=== PATIENT | female | born 1995 | race African-American/Black ===

== ENCOUNTER 2017-01-03 15:48 | Emergency (ER) | payer SELFPAY ==
--- NOTE | 2017-01-03 16:10 | PD ---
HPI Chief Complaint: Psychiatric Symptoms Time Seen by Provider: 16:07 Travel History International Travel<30 days: No Contact w/Intl Traveler<30days: No Traveled to known affect area: No History of Present Illness HPI 21-year-old Afro-[place] female brought in by local police with thoughts of suicidal ideation. Patient is a Albert act. Patient denies any medical issues currently. Patient does not have a specific plan. Patient states a history of asthma but no acute medical issues. She has no known drug allergies. PFSH Past Medical History ?: Not Social History Alcohol Use: No Tobacco Use: No Substance Use: No Allergies-Medications (Allergen,Severity, Reaction): Coded Allergies: No Known Allergies (Unverified , 01/03/17) Review of Systems Except as stated in HPI: all other systems reviewed are Neg General / Constitutional: No: Fever Eyes: No: Visual changes HENT: No: Headaches Cardiovascular: No: Chest Pain or Discomfort Respiratory: No: Shortness of Breath Gastrointestinal: No: Abdominal Pain Genitourinary: No: Dysuria Musculoskeletal: No: Pain Skin: No Rash Neurologic: No: Weakness Psychiatric: Positive: Depression, Suicidal Ideations, No: Anxiety, Disorder of Thought, Mood Disorder, Substance Abuse, Homicidal Ideation Endocrine: No: Polydipsia Hematologic/Lymphatic: No: Easy Bruising Physical Exam Narrative GENERAL: Patient appears in good spirits with good eye contact. SKIN: Warm and dry. Normal color. Normal turgor. HEAD: Atraumatic. Normocephalic. EYES: Pupils equal and round. No scleral icterus. No injection or drainage. ENT: No nasal bleeding or discharge. Mucous membranes pink and moist. Pharynx is normal. NECK: Trachea midline. Neck is supple. CARDIOVASCULAR: Regular rate and rhythm. RESPIRATORY: No accessory muscle use. Clear to auscultation. Breath sounds equal bilaterally. MUSCULOSKELETAL: Extremities without clubbing, cyanosis, or edema. No obvious deformities. NEUROLOGICAL: Awake and alert. No obvious cranial nerve deficits. Motor grossly within normal limits. Five out of 5 muscle strength in the arms and legs. Normal speech. PSYCHIATRIC: Appropriate mood and affect; insight and judgment normal. Data Data Orders Complete Blood Count With Diff (01/03/17 16:02) Comprehensive Metabolic Panel (01/03/17 16:02) Ed Urine Pregnancytest Poc (01/03/17 16:02) Psych Screen (01/03/17 16:02) Drug Screen, Random Urine (01/03/17 16:02) Alcohol (Ethanol) (01/03/17 16:02) MDM Medical Decision Making Medical Screen Exam Complete: Yes Emergency Medical Condition: Yes Differential Diagnosis Albert act. Suicidal ideation. Situational stressors. Narrative Course Patient is medically stable at time of exam. Psychiatric labs ordered per protocol. Patient is medically cleared for psychiatric evaluation. Diagnosis Primary Impression: Medical clearance for psychiatric admission Additional Impression: Suicidal ideation Condition: Stable Andry Edwards Jan 03, 2017 16:10
[2017-01-03 16:55] VITALS: BP 131/84; PULSE 71; RESP 15; TEMP 98.2; O2SAT 100
[2017-01-03 17:02] LABS: AUTOMATED NEUTROPHIL # 4.7 TH/MM3 (1.8-7.7); BASOPHIL # 0.1 TH/MM3 (0-0.2); BASOPHIL % 0.7 % (0.0-2.0); EOSINOPHIL # 0.4 TH/MM3 (0-0.4); EOSINOPHIL % 4.6 % (0.0-4.0); HEMATOCRIT 39.4 % (35.0-46.0); HEMO FLAGS DIFF FINAL; LYMPH % 29.2 % (9.0-44.0); LYMPHOCYTE # 2.3 TH/MM3 (1.0-4.8); MEAN CELL VOLUME 84.9 FL (80.0-100.0); MEAN CORPUSCULAR HEMOGLOBIN 29.2 PG (27.0-34.0); MEAN CORPUSCULAR HGB CONC 34.3 % (32.0-36.0); MONO % 6.2 % (0.0-8.0); NEUT % 59.3 % (16.0-70.0); PLATELET COUNT 204 TH/MM3 (150-450); RED BLOOD COUNT 4.64 MIL/MM3 (4.00-5.30); RED CELL DISTRIBUTION WIDTH 13.8 % (11.6-17.2)
[2017-01-03 17:22] LABS: ANION GAP 7 MEQ/L (5-15)
[2017-01-03 17:26] LABS: ALKALINE PHOSPHATASE 62 U/L (45-117); ALT (GPT) 15 U/L (9-42); AST (GOT) 12 U/L (16-38); BICARBONATE 25.7 MEQ/L (21.0-32.0); BLOOD UREA NITROGEN 9 MG/DL (7-18); CHLORIDE 107 MEQ/L (98-107); GLOMERULAR FILTRATION RATE 83 ML/MIN (>89); POTASSIUM 3.9 MEQ/L (3.5-5.1); SODIUM (NA) 140 MEQ/L (136-145); TOTAL BILIRUBIN ADULT 0.2 MG/DL (0.2-1.0)
[2017-01-03] MEDS ORDERED: ZOLO50TA PO (19:17)
[2017-01-03 21:06] LABS: AMPHETAMINE, URINE NEG (NEG); BARBITURATES, URINE NEG (NEG); COCAINE, URINE NEG (NEG)
[2017-01-03 22:25] VITALS: BP 139/86; PULSE 61; RESP 18
[2017-01-04 02:21] VITALS: BP 156/79; PULSE 63; RESP 18; O2SAT 100
== END 2017-01-04 03:53 ==
LOC: NEPJ 15:48
DX: Z02.89 Encounter for other administrative examinations (principal); R45.851 Suicidal ideations; Z87.09 Personal history of other diseases of the respiratory system
CPT/HCPCS: 80053; 80307; 84703; 85025; 99284

== ENCOUNTER 2017-01-30 14:28 | Emergency (ER) | payer SELFPAY ==
[~2017-01-30] VITALS: Ht 160 cm; Wt 104.5 kg
[~2017-01-30 14:28] MED LIST: ZOLO50TA PO
[2017-01-30 14:29] VITALS: BP 145/77; PULSE 80; RESP 17; TEMP 98.2; O2SAT 98
== END 2017-01-30 14:55 | disposition left against medical advice (07) ==
LOC: NED 14:28
DX: H57.8 Other specified disorders of eye and adnexa (principal)
CPT/HCPCS: 99281

== ENCOUNTER 2017-11-03 16:43 | Emergency (ER) | payer MEDICAID ==
[2017-11-03 16:47] VITALS: BP 144/67; PULSE 77; RESP 14; TEMP 99; O2SAT 95
--- NOTE | 2017-11-03 20:32 | PD ---
HPI Chief Complaint: Skin Problem Time Seen by Provider: 20:08 Travel History International Travel<30 days: No Contact w/Intl Traveler<30days: No Traveled to known affect area: No History of Present Illness HPI 22-year-old female presents to the emergency room with 2 complaints. Her first complaint is right ear lobe pain and swelling 2 weeks. She said she noticed a cut on her right earlobe about 2 weeks ago and since then it has slowly swollen. She says the ear lobe is itchy also. She denies fever, vomiting. Has not taken any medications or tried any treatments to alleviate her symptoms. Rates pain 03/05. Describes it as a throbbing sensation. No known aggravating or relieving factors. Her second complaint is a sore throat 2 days. Burning in sensation. 05/05. Denies lump in throat, difficulty swallowing, unusual drooling. No others with similar symptoms. Denies nasal congestion, cough, ear pain. Has been taking DayQuil/NyQuil for symptomatic management. Denies fever, vomiting. Denies abdominal pain. Worse with swallowing. No known allergies. Has no other medical complaints. No other modifying factors or associated signs and symptoms. PFSH Past Medical History Depression: Yes Diabetes: No Respiratory: Yes (asthma) ?: Not LMP: 2 weeks aso Social History Alcohol Use: No Tobacco Use: No Substance Use: No (PT DENIES) Allergies-Medications (Allergen,Severity, Reaction): Coded Allergies: No Known Allergies (Unverified Adverse Reaction, Unknown, 11/03/17) Reported Meds & Prescriptions Reported Meds & Active Scripts Active Magic Mouthwash Pediatric/Adult Liq (Lidocaine/Diphenhydr/Alum/Mg/Simeth) 60 Ml Susp 5 Ml SWISH-SWAL ACHS PRN Each 5mL contains: Diphenydramine 4.5mg, Viscous Lidocaine 2% 10mg, Maalox Advanced Regular Strength 2.7ml Ibuprofen 800 Mg Tab 800 Mg PO Q6HR PRN Clindamycin (Clindamycin HCl) 150 Mg Cap 450 Mg PO Q6H 10 Days Reported Zoloft (Sertraline HCl) 50 Mg Tab 50 Mg PO DAILY Review of Systems Except as stated in HPI: all other systems reviewed are Neg Physical Exam Narrative GENERAL: Well-nourished, well-developed black female patient, in no acute distress SKIN: Warm and dry. No rash. HEAD: Atraumatic. Normocephalic. EYES: Pupils equal and round at 3 mm with brisk reaction. No scleral icterus. No injection or drainage. PERRLA. ENT: Mucosa pink and dry. Pharynx with 1+ tonsils; with erythema; without exudate, and edema. No Uvular edema. No uvular, palatal, or tonsillar deviation. Airway patent. Voice is hoarse. EARS: Right ear lobe is edematous and erythematous and with warmth to touch; skin is dry and some cracking is noted; dry crusted drainage noted. Bilateral pinnae and external canals appear within normal limits. Bilateral tympanic membranes without erythema, dullness or perforation. No auricular lymphadenopathy. No tenderness on palpation behind the ear and there is no erythema or edema behind the ear. NECK: Trachea midline. Anterior cervical lymphadenopathy and tenderness. CARDIOVASCULAR: Regular rate and rhythm. No murmur appreciated. 3+ radial pulses. RESPIRATORY: No accessory muscle use. Clear to auscultation. Breath sounds equal bilaterally. GASTROINTESTINAL: Abdomen soft, non-tender, nondistended. Hepatic and splenic margins not palpable. Bowel sounds are active 4 quadrants. MUSCULOSKELETAL: No obvious deformities. No clubbing. No cyanosis. No edema. BACK: No CVA tenderness. NEUROLOGICAL: Awake and alert. Oriented 3. No obvious cranial nerve deficits. Motor grossly within normal limits. Normal speech. Moves all extremities. PSYCHIATRIC: Appropriate mood and affect; insight and judgment normal. Data Data Last Documented VS Vital Signs Date Time Temp Pulse Resp B/P (MAP) Pulse Ox O2 Delivery O2 Flow Rate FiO2 11/03/17 16:47 99.0 77 14 144/67 (92) 95 Orders Orders Group A Rapid Strep Screen (11/03/17 20:32) Clindamycin (Cleocin) (11/03/17 20:45) Ibuprofen (Motrin) (11/03/17 20:45) Ed Discharge Order (11/03/17 20:35) MDM Medical Decision Making Medical Screen Exam Complete: Yes Emergency Medical Condition: Yes Medical Record Reviewed: Yes Differential Diagnosis Earlobe cellulitis, sore throat, strep throat, pharyngitis, viral pharyngitis Narrative Course 22-year-old female with cellulitis of the right ear lobe and a sore throat. I will treat the patient with clindamycin to treat both cellulitis and possible strep throat. Rapid strep pending. And mycin, Magic mouthwash, ibuprofen prescribed for home. Ibuprofen administered in the ER prior to discharge. Instructed patient to follow up with primary care provider. Patient verbalizes understanding and agreement with treatment plan. Patient is medically cleared and stable for discharge. Discussed reasons to return to the emergency department. Patient agrees with treatment plan. The patients vital signs are stable and the patient is stable for outpatient follow-up and treatment. Patient discharged home, stable and in no acute distress. Diagnosis Primary Impression: Cellulitis of right earlobe Additional Impression: Sore throat Referrals: Primary Care Physician Patient Instructions: Cellulitis (ED), General Instructions, Pharyngitis (ED) Additional Instructions: Take Antibiotics as prescribed and complete full course of antibiotics Throw away and change your toothbrush 24 hours after starting antibiotics Get plenty of sleep/rest Rest your voice Drink plenty of fluids to prevent dehydration Use warm saltwater gargles to soothe throat pain Use an air humidifier/turn off ceiling fans Use throat lozenges as needed for sore throat Use ibuprofen or acetaminophen as needed to relieve pain and fever Follow-up with your primary care provider within 2-4 days Return immediately to the emergency department with worsening of symptoms Med/Other Pt SpecificInfo: Prescription(s) given Scripts Fmtpderzidezkum-Olvpvxsvn-Pyx-Alum-Simeth Liq (Magic Mouthwash Pediatric/Adult Liq) 60 Ml Susp 5 ML SWISH-SWAL ACHS Y for SORE THROAT, #60 ML 0 Refills Each 5mL contains: Diphenydramine 4.5mg, Viscous Lidocaine 2% 10mg, Maalox Advanced Regular Strength 2.7ml Prov: Kayla Darnell 11/03/17 Ibuprofen (Ibuprofen) 800 Mg Tab 800 MG PO Q6HR Y for PAIN, #20 TAB 0 Refills Prov: Kayla Darnell 11/03/17 Clindamycin (Clindamycin) 150 Mg Cap 450 MG PO Q6H for Infection for 10 Days, #120 CAP 0 Refills Prov: Kayla Darnell 11/03/17 Disposition: 01 DISCHARGE HOME Condition: Stable Kayla Darnell Nov 03, 2017 20:32
[2017-11-03] MEDS ORDERED: MAGICPED SWISH-SWAL (20:35)
[2017-11-03] MEDS ORDERED: CLIN150C14 PO (20:35)
[2017-11-03] MEDS ORDERED: IBUP1TAB7 PO (20:35)
[2017-11-03] MEDS ORDERED: CLINDAMYCIN 150 MG CAP PO SCH (20:45)
[2017-11-03] MEDS ORDERED: IBUPROFEN 800 MG TAB PO ONE (20:45)
== END 2017-11-03 21:01 | disposition home or self-care (01) ==
LOC: NEPK 16:43
DX: H60.11 Cellulitis of right external ear (principal); J02.9 Acute pharyngitis, unspecified; J45.909 Unspecified asthma, uncomplicated; F32.9 Major depressive disorder, single episode, unspecified; Z79.899 Other long term (current) drug therapy
CPT/HCPCS: 87880; 99284